=== PATIENT | male | born 1935 | race Hispanic/Latino ===

== ENCOUNTER 2019-07-05 16:09 | Emergency (ER) | payer OTHER ==
[~2019-07-05] VITALS: Ht 170.2 cm; Wt 83.9 kg
[~2019-07-05 16:09] MED LIST: ARICEPT5 MG PO; ASPIR 8181 MG PO; ATORVASTATIN CA40 MG PO; FLAXSEED PO; FLOMAX0.4 MG PO; NAMENDA PO; NAMENDA10 MG PO; Z.0.AMBIEN10 MG PO; Z.0.FLOMAX0.4 MG PO; Z.0.KEFLEX500 MG PO; Z.0.LOVENOX30 MG/0.3 SQ; Z.0.NORCO 7.5-3251 E PO; Z.0.PRAVASTATIN SOD4 PO; Z.0.SIMVASTATIN40 MG PO; Z.0.VALIUM5 MG PO
[2019-07-05] MEDS ORDERED: SODIUM CHLORIDE 0.9% 500ML 500 ML IV STA (16:17)
[2019-07-05 16:45] LABS: BASOPHILS # (AUTO) 0.1 (0.0-0.1); BASOPHILS % 1.3 % (0.0-1.0); EOSINOPHILS % 0.5 % (0.0-6.0); HEMATOCRIT 47.9 % (38.2-49.6); HEMOGLOBIN 16.1 g/dL (14.0-18.0); LYMPHOCYTES # (AUTO) 1.7 (1.0-3.2); LYMPHOCYTES % 26.5 % (18.0-39.1); MEAN CORPUSCULAR HEMOGLOBIN 29.6 pg (28-32); MEAN CORPUSCULAR HGB CONC 33.6 g/dL (31-35); MEAN CORPUSCULAR VOLUME 88.1 fL (81-99); MONOCYTES # (AUTO) 0.5 (0.2-0.8); MONOCYTES % 7.4 % (4.4-11.3); PLATELET COUNT 222 x10e3/uL (140-360); RED BLOOD COUNT 5.44 x10e6/uL (4.3-5.7); RED CELL DISTRIBUTION WIDTH 13.8 % (11.7-14.4)
[2019-07-05 16:54] LABS: INR 1.09; PARTIAL THROMBOPLASTIN TIME 36.4 seconds (23.8-35.5); PROTHROMBIN TIME 14.8 seconds (11.9-14.5)
[2019-07-05 16:59] LABS: ALANINE AMINOTRANSFERASE 13 IU/L (0-55); ALBUMIN 3.8 g/dL (3.5-5.0); ALBUMIN/GLOBULIN RATIO 1.3 (0.8-2.0); ALKALINE PHOSPHATASE 77 IU/L (40-150); ANION GAP 13.3 mmol/L (8-16); BLOOD UREA NITROGEN 12 mg/dL (7-26); BUN/CREATININE RATIO 14 (6-25); CALCIUM 10.6 mg/dL (8.4-10.2); CARBON DIOXIDE 24 mmol/L (22-29); CHLORIDE 105 mmol/L (98-107); CREATINE KINASE 31 IU/L (30-200); CREATININE, SERUM 0.84 mg/dL (0.72-1.25); EST GLOMERULAR FILTRATION RATE > 60 ML/MIN (60-); GLUCOSE 124 mg/dL (74-118); POTASSIUM 4.3 mmol/L (3.5-5.1); SODIUM 138 mmol/L (136-145)
--- NOTE | 2019-07-05 16:59 | Diagnostic Imaging Report ---
EXAM: ABDOMEN-1VIEW (KUB), CHEST SINGLE (PORTABLE) DATE: 07/05/2019 4:35 PM INDICATION: Weakness, constipation COMPARISON: None FINDINGS: There is significant opacification of the left hemithorax likely reflecting large volume pleural effusion. There is mild associated rightward mediastinal shift. The aerated portion of the left upper lobe appears unremarkable. The right lung is grossly clear. There is no evidence for pneumothorax. The cardiomediastinal silhouette is partially obscured but appears prominent. Bowel gas pattern is appears nonobstructive. No pathologically dilated loops of bowel are identified. No abnormal intra-abdominal calcification is appreciated. The osseous structures demonstrate degenerative changes without evidence for acute abnormality. IMPRESSION: Significant opacification of the left hemithorax likely reflecting large volume pleural effusion. No acute radiographic abnormality identified within the abdomen. Signed by: Dr. Hipolito Wright MD on 07/05/2019 4:55 PM
--- OUTSIDE RECORDS SUMMARY | 2019-07-05 17:47 | XMS REPORT ---
Author Author [facility] Organization [facility] Address Unknown Phone Unavailable Care Team Providers Care Fifth Hand Name Role Phone JOSE D CUELLO Unavailable Unavailable Problems This patient has no known problems. Allergies, Adverse Reactions, Alerts This patient has no known allergies or adverse reactions. Medications This patient has no known medications. Results Test Description Test Time Test Comments Text Results Atomic Results Result Comments CHEST SINGLE (PORTABLE) 2019-07-05 16:51:00 [place] [address] Patient Name: KATHY HERNÁNDEZ MR #: [id number] : 1935 Age/Sex: 84/M Req #: [id number] Adm Physician: Ordered by: HECTOR LOCKE [employer]ICE RECORDS CLERK Report #: [id number] Location: ER Room/Bed: Procedure: [id number] DX/CHEST SINGLE (PORTABLE) Exam Date: 07/05/19 Exam Time: 1635 REPORT STATUS: Signed EXAM: ABDOMEN-1VIEW (KUB), CHEST SINGLE (PORTABLE) DATE: 07/05/2019 4:35 PM INDICATION: Weakness, constipation COMPARISON: None FINDINGS: There is significant opacification of the left hemithorax likely reflecting large volume pleural e ffusion. There is mild associated rightward mediastinal shift. The aerated portion of the left upper lobe appears unremarkable. The right lung is grossly clear. There is no evidence for pneumothorax. The cardiomediastinal silhouette is partially obscured but appears prominent. Bowel gas pattern is appears nonobstructive. No pathologically dilated loops of bowel are identified. No abnormal intra-abdominal calcification is appreciated. The osseous structures demonstrate degenerative changes without evidence for acute abnormality. IMPRESSION: Significant opacification of the left hemithorax likely reflecting large volume pleural effusion. No acute radiographic abnormality identified within the abdomen. Signed by: Dr. Hipolito Wright MD on 07/05/2019 4:55 PM Dictated By: HIPOLITO WRIGHT MD 54 Transcribed By: CARMEL on 07/05/191654 COPY TO: HECTOR LOCKE NP ABDOMEN-1VIEW (KUB) 2019-07-05 16:51:00 [place] [address] Patient Name: KATHY HERNÁNDEZ MR #: [id number] : 1935 Age/Sex: 84/M Req #: [id number] Adm Physician: Ordered by: HECTOR LOCKE NP Report #: [id number] Location: ER Room/Bed: Procedure: [id number] DX/ABDOMEN-1VIEW (KUB) Exam Date: 07/05/19 Exam Time: 1635 REPORT STATUS: Signed EXAM: ABDOMEN-1VIEW (KUB), CHEST SINGLE (PORTABLE) DATE: 07/05/2019 4:35 PM INDICATION: Weakness, constipation COMPARISON: None FINDINGS: There is significant opacification of the left hemithorax likely reflecting large volume pleural effusion. There is mild associated rightward mediastinal shift. The aerated portion of the left upper lobe appears unremarkable. The right lung is grossly clear. There is no evidence for pneumothorax. The cardiomediastinal silhouette is partially obscured but appears prominent. Bowel gas pattern is appears nonobstructive. No pathologically dilated loops of bowel are identified. No abnormal intra-abdominal calcification is appreciated. The osseous structures demonstrate degenerative changes without evidence for acute abnormality.
[2019-07-05] MEDS ORDERED: PIPER-TAZ 3.375 GM 50 ML IV SCH (18:00)
[2019-07-05] MEDS ORDERED: LEVOFLOXACIN 500 MG TAB PO ONE (18:15)
== END 2019-07-05 18:26 | disposition home or self-care (01) ==
LOC: ER 16:09
DX: R53.1 Weakness (principal); J18.9 Pneumonia, unspecified organism; J90 Pleural effusion, not elsewhere classified
CPT/HCPCS: 36415; 71045; 74018; 80053; 82550; 82553; 84484; 85025; 85610; 85730; 93005; 99284; J7040

== ENCOUNTER 2019-07-12 12:33 | Emergency (ER) | payer OTHER ==
[~2019-07-12] VITALS: Ht 170.2 cm; Wt 83.9 kg
[2019-07-12 13:54] LABS: BASOPHILS # (AUTO) 0.1 (0.0-0.1); BASOPHILS % 0.7 % (0.0-1.0); EOSINOPHILS % 0.5 % (0.0-6.0); HEMATOCRIT 47.1 % (38.2-49.6); HEMOGLOBIN 15.4 g/dL (14.0-18.0); LYMPHOCYTES # (AUTO) 1.4 (1.0-3.2); LYMPHOCYTES % 16.9 % (18.0-39.1); MEAN CORPUSCULAR HEMOGLOBIN 28.8 pg (28-32); MEAN CORPUSCULAR HGB CONC 32.7 g/dL (31-35); MONOCYTES # (AUTO) 0.8 (0.2-0.8); MONOCYTES % 9.7 % (4.4-11.3); NEUTROPHILS # (AUTO) 5.8 (2.1-6.9); PLATELET COUNT 213 x10e3/uL (140-360); RED BLOOD COUNT 5.35 x10e6/uL (4.3-5.7); RED CELL DISTRIBUTION WIDTH 13.9 % (11.7-14.4)
--- NOTE | 2019-07-12 13:55 | Emergency Department Note ---
History of Present Illnes History of Present Illness Chief Complaint: General Medicine Complaints Stated Complaint: HIGH BP- Chief Complaint Comment per daughter pt dx with pleural effusion this past mon hx of alzheimers per family dr weldon wanted to keep pt but because of alz. and pt hx of becoming combative in unfamiliar surroundings daughter who is nurse said she would monitor pt at home per family pt has anxiety and at home would get anxious and o2 sat would drop between 92- 94% pt also took 's home meds by mistake thinking it was his pt took atorvastatin 40 mg, clopiddogrel 75 mg, lisinopril 20 mg, and amlodipine 10 mg and trajenta 5 mg, family states pt bp has dropped as low 79 systolic; dr kaplan in room during triage History of Present Illness This is a 84 year old male arrived to the ED after accidentally taking his 's blood pressure medications- pt hypotensive at home, daughter is a RN and was concerned about persistent hypotension. Historian: Patient, Family Member Ultrasound Tester Required: No Severity: mild Onset quality: sudden Past Medical/Family History Physician Review I have reviewed the patient's past medical and family history. Any updates have been documented here. Past Medical History Recent Fever: No Clinical Suspicion of Infectio: No New/Unexplained Change in Ment: No Past Medical History: Hypertension, Hyperlipedemia Other Medical History: ALZHEIMERS Past Surgical History: Knee Replacement Other Surgery: RIGHT TOTAL KNEE Social History Smoking Cessation: Current every day smoker Counseling Performed: No Alcohol Use: Occasional Any Illegal Drug Use: No TB Exposure/Symptoms: No Physically hurt or threatened: No Other Last Tetanus: UNKNOWN Any Pre-Existing Lines (PICC,: No Is patient up to date on immun: Yes Last Flu: utd Last Pneumovax: utd Review of Systems Review of Systems Constitutional: no symptoms EENTM: no symptoms Cardiovascular: no symptoms Respiratory: no symptoms Gastrointestinal: no symptoms Genitourinary: no symptoms Musculoskeletal: no symptoms Integumentary: no symptoms Neurological: no symptoms Psychological: no symptoms Endocrine: no symptoms Hematological/Lymphatic: no symptoms Review of other systems All other systems reviewed and negative. Physical Exam Related Data Allergies: Coded Allergies: hydromorphone (Verified Allergy, Intermediate, Combative, Disoriented, 10/25/13) Triage Vital Signs Vital Signs Date Time Temp Pulse Resp B/P (MAP) Pulse Ox O2 Delivery O2 Flow Rate FiO2 5/12/20 12:50 97.6 84 18 103/80 96 Physical Exam CONSTITUTIONAL Constitutional: well-developed, well-nourished HENT HENT: normocephalic, atraumatic, oropharynx clear/moist, nose normal HENT - Ear: left ext ear normal, right ext ear normal EYES Eyes: PERRL, conjunctivae normal NECK Neck: ROM normal PULMONARY Pulmonary: effort normal, other (decreased breath sounds over left lung carney ) CARDIOVASCULAR Cardiovascular: regular rhythm, heart sounds normal, capillary refill normal, normal rate GASTROINTESTINAL Abdominal: soft, nontender, bowel sounds normal GENITOURINARY Genitourinary: exam deferred SKIN Skin: warm, dry MUSCULOSKELETAL Musculoskeletal: ROM normal NEUROLOGICAL Neurological: alert, no gross motor or sensory deficits PSYCHOLOGICAL Psychiatric/behavioral: mood/affect normal, judgement normal Results Laboratory Laboratory Laboratory Tests Test 07/12/19 13:01 07/12/19 12:57 White Blood Count 8.04 x10e3/uL (4.8-10.8) Red Blood Count 5.35 x10e6/uL (4.3-5.7) Hemoglobin 15.4 g/dL (14.0-18.0) Hematocrit 47.1 % (38.2-49.6) Mean Corpuscular Volume 88.0 fL (81-99) Mean Corpuscular Hemoglobin 28.8 pg (28-32) Mean Corpuscular Hemoglobin Concent 32.7 g/dL (31-35) Red Cell Distribution Width 13.9 % (11.7-14.4) Platelet Count 213 x10e3/uL (140-360) Neutrophils (%) (Auto) 72.0 % (38.7-80.0) Lymphocytes (%) (Auto) 16.9 % (18.0-39.1) Monocytes (%) (Auto) 9.7 % (4.4-11.3) Eosinophils (%) (Auto) 0.5 % (0.0-6.0) Basophils (%) (Auto) 0.7 % (0.0-1.0) Neutrophils # (Auto) 5.8 (2.1-6.9) Lymphocytes # (Auto) 1.4 (1.0-3.2) Monocytes # (Auto) 0.8 (0.2-0.8) Eosinophils # (Auto) 0.0 (0.0-0.4) Basophils # (Auto) 0.1 (0.0-0.1) Absolute Immature Granulocyte (auto 0.02 x10e3/uL (0-0.1) Sodium Level 136 mmol/L (136-145) Potassium Level 3.7 mmol/L (3.5-5.1) Chloride Level 102 mmol/L (98-107) Carbon Dioxide Level 25 mmol/L (22-29) Anion Gap 12.7 mmol/L (8-16) Blood Urea Nitrogen 11 mg/dL (7-26) Creatinine 1.10 mg/dL (0.72-1.25) Estimat Glomerular Filtration Rate > 60 ML/MIN (60-) BUN/Creatinine Ratio 10 (6-25) Glucose Level 108 mg/dL (74-118) Calcium Level 9.9 mg/dL (8.4-10.2) Total Bilirubin 1.0 mg/dL (0.2-1.2) Aspartate Amino Transf (AST/SGOT) 18 IU/L (5-34) Alanine Aminotransferase (ALT/SGPT) 22 IU/L (0-55) Alkaline Phosphatase 77 IU/L (40-150) Creatine Kinase 41 IU/L (30-200) Creatine Kinase MB 1.00 ng/mL (0-5.0) Troponin I 0.011 ng/mL (0-0.300) Total Protein 6.5 g/dL (6.5-8.1) Albumin 3.6 g/dL (3.5-5.0) Globulin 2.9 g/dL (2.3-3.5) Albumin/Globulin Ratio 1.2 (0.8-2.0) Bedside Glucose 126 mg/dL (70-120) Lab results reviewed: Yes Laboratory comments unremarkable Procedures 12 Lead ECG Interpretation Ultrasound Tester: Interpreted by ED physician Date: July 12, 2019 Time: 13:04 Prior BALANCE BRIDGE INSPECTOR tracings: reviewed Rhythm: sinus rhythm QRS axis: normal ST Segments Normal: Yes Other findings: no other findings Clinical Impression: normal ECG Critical Care Time Subsequent provider I assumed direction of critical care for this patient from another provider of my specialty. Assessment & Plan Assessment & Plan Problems: (1) Pleural effusion (2) Hypotension Assessment & Plan 84 M arrived to the ED with hypotension after accidentally taking 's BP meds -pt monitored in the ED, normal vitals and labs -Thoracentesis done in the ED- tolerated well - family wished to take pt home because of fears of pt sundowning Pt has 5 daughter all in health care, spoke to 3 daughters individually and informed them of concerns of leaving before chest x-ray result- expressed understanding. Spoke to family about re-expansion edema and suggested hospital admission for monitoring. Daughters state they have pulse ox and BP machine at home and feel comfortable monitoring F/U with Dr. Weldon was arranged for this week. P's family given my direct number to reach out for any concerns or issues Last Vital Signs Date Time Temp Pulse Resp B/P (MAP) Pulse Ox O2 Delivery O2 Flow Rate FiO2 07/12/19 12:50 97.6 84 18 103/80 96 Home Meds Reported Medications Memantine Hcl (NAMENDA) 10 Mg Tablet, 10 MG PO HS, #30 TAB 03/22/15 Aspirin (ASPIR 81) 81 Mg Tablet.dr, 81 MG PO HS 12/25/14 Donepezil Hcl (ARICEPT) 5 Mg Tablet, 5 MG PO HS, TAB 12/25/14 Atorvastatin Calcium (ATORVASTATIN CALCIUM) 40 Mg Tablet, 40 MG PO HS 11/29/13 Tamsulosin Hcl* (FLOMAX*) 0.4 Mg Cap, 0.4 MG PO HS, CAP 10/25/13 TIM KAPLAN, July 12, 2019 13:55
[2019-07-12 14:11] LABS: ALANINE AMINOTRANSFERASE 22 IU/L (0-55); ALBUMIN 3.6 g/dL (3.5-5.0); ALBUMIN/GLOBULIN RATIO 1.2 (0.8-2.0); ALKALINE PHOSPHATASE 77 IU/L (40-150); ANION GAP 12.7 mmol/L (8-16); BLOOD UREA NITROGEN 11 mg/dL (7-26); BUN/CREATININE RATIO 10 (6-25); CALCIUM 9.9 mg/dL (8.4-10.2); CARBON DIOXIDE 25 mmol/L (22-29); CHLORIDE 102 mmol/L (98-107); CREATINE KINASE 41 IU/L (30-200); EST GLOMERULAR FILTRATION RATE > 60 ML/MIN (60-); GLUCOSE 108 mg/dL (74-118); POTASSIUM 3.7 mmol/L (3.5-5.1); SODIUM 136 mmol/L (136-145)
--- NOTE | 2019-07-12 15:47 | NUR ---
daughter Lashon called to check on her father and states that she will call back.
--- NOTE | 2019-07-12 16:48 | NUR ---
pt daughter who is a registerd nurse states that she wants to take client home. Dr. Vaz came to speak to the client daughter and advised her that there are risks associated with post procedure monitoring and not waiting for x-rays to be read. Dr. Vaz explained to the daughter that it is dangerous to leave without x-ray results due to a chance of alveolar edema. clients daughter reiterated that she was a nurse and that she accepts the risks and wished to take client home without waiting for results.
--- NOTE | 2019-07-12 17:10 | Operative Report ---
DATE OF PROCEDURE: SURGEON: Meir Weldon MD PROCEDURE: Ultrasound-guided thoracentesis. PREOPERATIVE DIAGNOSIS: Pleural effusion, possibly secondary to malignancy. POSTOPERATIVE DIAGNOSIS: Pleural effusion, possibly secondary to malignancy. CONSENT: Consent was obtained from the patient and the daughter. ANESTHESIA: 1% lidocaine for local anesthesia. DESCRIPTION OF PROCEDURE: The patient was placed in upright position. An ultrasound was used to locate the left pleural space. There was a large pleural effusion without loculations. The area between the 8th and 9th rib posterolaterally was anesthetized with lidocaine. A 16-gauge needle was used to enter the left pleural space. A catheter was placed over the needle. 2.4 L of dark serosanguineous pleural fluid was removed. COMPLICATIONS: None. ESTIMATED BLOOD LOSS: None. Meir Weldon MD LMH/MODL /[id number]
[2019-07-12 17:24] LABS: BODY FLUID TYPE PLEURAL
[2019-07-12 17:25] LABS: BODY FLUID COLOR RED
[2019-07-12 17:26] LABS: BODY FLUID APPEARANCE SL.CLOUDY
[2019-07-12 18:49] LABS: RBC,BODY FLUID 52470 cells/uL; WBC,BODY FLUID 594 cells/uL
[2019-07-12 21:46] LABS: LYMPHOCYTES,BODY FLUID 81 %; MONO/MACROPHG,BODY FLUID 5 %; NEUTROPHILS,BODY FLUID 1 %; OTHER CELLS,BODY FLUID 13 %
--- NOTE | 2019-07-13 09:37 | Diagnostic Imaging Report ---
Examination: Single AP view of the chest. COMPARISON: 07/12/2019 INDICATION: Pleural effusion DISCUSSION: Lines/tubes: None. Lungs: Decreased opacification of the left hemithorax secondary to large effusion and atelectasis. Additional pathology may be obscured. Heart and mediastinum: The right heart border appears enlarged. Mediastinal shift towards the right. Bones and soft tissues: No acute bony abnormalities. IMPRESSION: Decreased opacification of the left hemithorax secondary to large effusion and atelectasis with partial aeration of the left upper lung. Additional pathology may be obscured. No pneumothorax. Mildly decreased mediastinal shift towards the right. Signed by: Dr. Wyatt Quick M.D. on 07/13/2019 9:30 AM
--- NOTE | 2019-07-13 09:37 | Diagnostic Imaging Report ---
Examination: Single AP view of the chest. COMPARISON: July 05, 2019 INDICATION: Pleural effusion DISCUSSION: Lines/tubes: None. Lungs: Complete opacification of the left hemithorax secondary to large effusion atelectasis. Additional pathology may be obscured. Heart and mediastinum: The right heart border appears enlarged. Mediastinal shift towards the right. Bones and soft tissues: No acute bony abnormalities. IMPRESSION: Now complete opacification of the left hemithorax secondary to large effusion and atelectasis. Additional pathology may be obscured. Mediastinal shift towards the right. Signed by: Dr. Wyatt Quick M.D. on 07/13/2019 9:29 AM
== END 2019-07-12 17:10 | disposition home or self-care (01) ==
LOC: ER 12:33
DX: I95.2 Hypotension due to drugs (principal); J90 Pleural effusion, not elsewhere classified; G30.9 Alzheimer's disease, unspecified; F02.80 Dementia in other diseases classified elsewhere, unspecified severity, without behavioral disturbance, psychotic disturbance, mood disturbance, and anxiety; I10 Essential (primary) hypertension; E78.5 Hyperlipidemia, unspecified; Z96.651 Presence of right artificial knee joint
CPT/HCPCS: 36415; 71045; 80053; 82550; 82553; 82948; 83615; 84157; 84484; 85025; 88112; 88305; 89051; 93005; 99282

== ENCOUNTER 2019-08-01 05:46 | Inpatient (IN) | payer OTHER ==
[2019-07-28 13:15] LABS: BASOPHILS # (AUTO) 0.1 (0.0-0.1); BASOPHILS % 1.1 % (0.0-1.0); EOSINOPHILS # (AUTO) 0.1 (0.0-0.4); EOSINOPHILS % 0.8 % (0.0-6.0); HEMATOCRIT 47.9 % (38.2-49.6); HEMOGLOBIN 15.8 g/dL (14.0-18.0); LYMPHOCYTES # (AUTO) 1.4 (1.0-3.2); LYMPHOCYTES % 21.9 % (18.0-39.1); MEAN CORPUSCULAR HEMOGLOBIN 28.7 pg (28-32); MEAN CORPUSCULAR VOLUME 87.1 fL (81-99); MONOCYTES # (AUTO) 0.7 (0.2-0.8); MONOCYTES % 10.4 % (4.4-11.3); NEUTROPHILS # (AUTO) 4.2 (2.1-6.9); NEUTROPHILS % 65.5 % (38.7-80.0); PLATELET COUNT 257 x10e3/uL (140-360); RED CELL DISTRIBUTION WIDTH 13.6 % (11.7-14.4)
--- NOTE | 2019-07-28 13:27 | Diagnostic Imaging Report ---
EXAMINATION: CHEST 2 VIEWS INDICATION: Pre-operative COMPARISON: Chest radiograph 07/12/2019 FINDINGS: LINES/TUBES:None LUNGS:The right lung is well-inflated. Left lung volume is low. There is left basilar opacity silhouetting the left familia diaphragm. PLEURA:Large left pleural effusion. No pneumothorax. MEDIASTINUM:Cardiomediastinal silhouette is stably enlarged. BONES/SOFT TISSUES:No acute osseous injury. ABDOMEN:No free air under the diaphragm. IMPRESSION: Large left pleural effusion. Left basilar opacity, most likely atelectasis. Unchanged cardiomegaly. Signed by: Alxe Benitez MD on 07/28/2019 1:24 PM
[2019-07-28 13:34] LABS: PROTHROMBIN TIME 13.8 seconds (11.9-14.5)
[2019-07-28 13:35] LABS: PARTIAL THROMBOPLASTIN TIME 34.9 seconds (23.8-35.5)
[2019-07-28 13:39] LABS: ANION GAP 12.3 mmol/L (8-16); BLOOD UREA NITROGEN 11 mg/dL (7-26); BUN/CREATININE RATIO 13 (6-25); CALCIUM 10.1 mg/dL (8.4-10.2); CARBON DIOXIDE 23 mmol/L (22-29); CHLORIDE 105 mmol/L (98-107); CREATININE, SERUM 0.82 mg/dL (0.72-1.25); EST GLOMERULAR FILTRATION RATE > 60 ML/MIN (60-); GLUCOSE 105 mg/dL (74-118); POTASSIUM 4.3 mmol/L (3.5-5.1); SODIUM 136 mmol/L (136-145)
[~2019-08-01] VITALS: Ht 170.2 cm; Wt 83.9 kg
[~2019-08-01 05:46] MED LIST changes: +CLOPIDOGREL75 MG PO; +LISINOPRIL2.5 MG PO; +QUETIAPINE FUMA25 MG PO
[2019-08-01] MEDS ORDERED: HEPARIN SOD/SOD CHLORIDE 0 ML ONE (06:59)
[2019-08-01] MEDS ORDERED: SUGAMMADEX SODIUM 200 MG/2 ML VIAL IV ONE (07:16)
[2019-08-01] MEDS ORDERED: LIDOCAINE HCL (LTA) 4 ML SOLN ONE (07:22)
[2019-08-01] MEDS ORDERED: BUPIVACAINE HCL 0.5% INJ 30 ML VIAL INJ ONE (08:56)
[2019-08-01] MEDS ORDERED: FENTANYL CITRATE/PF 100MCG/2 ML INJ ONE ×2 (09:57→13:57)
--- NOTE | 2019-08-01 10:14 | Diagnostic Imaging Report ---
EXAM: CHEST SINGLE (PORTABLE) DATE: 08/01/2019 9:44 AM INDICATION: Status post chest tube placement COMPARISON: 07/28/2019 FINDINGS: There is been interval placement of a left basilar chest tube. There has been significant reduction in left-sided pleural effusion with trace residual or effusion remaining. There are increased left basilar opacities which may reflect atelectasis. An underlying airspace process cannot be entirely excluded. There is no evidence for large focal consolidation or pneumothorax. The cardiomediastinal silhouette is stable in appearance. Subcutaneous emphysema noted within the left chest wall, likely secondary to recent chest tube placement. No acute osseous abnormalities identified. IMPRESSION: Interval placement of a left-sided chest tube with significant reduction of left pleural effusion. Left lower lung zone opacities identified which may reflect atelectasis. Signed by: Dr. Hipolito Wright MD on 08/01/2019 10:11 AM
--- OUTSIDE RECORDS SUMMARY | 2019-08-01 11:15 | XMS REPORT ---
Author Author [facility] t Organization [facility] Address [address] [place] [address] Phone Unavailable Care Team Providers Care Personnel Recruiter Name Role Phone MD JOSE MANZO PCP KIERRA VILLASENOR Attphys Unavailable Juan WELDON Attphys Unavailable JOSE D CUELLO Attphypauline Unavailable Payers Payer Name Policy Type Policy Number Effective Date Expiration Date Pauline [employer] NA 2015 00:00:00 [facility] Problems Condition Name Condition Details Condition Category Status Onset Date Resolution Date Last Treatment Date Treating Clinician Comments Source Pleural effusion Problem Active [facility] Hypotension Problem Active [facility] Allergies, Adverse Reactions, Alerts Allergy Name Allergy Type Status Severity Reaction(s) Onset Date Inacti ve Date Treating Clinician Comments Source Hydromorphone Allergy to substance Active Moderate Combative, D isoriented 2013-10-25 00:00:00 [facility] Social History Social Habit Start Date Stop Date Quantity Comments Source Sex Assigned At 1935 00:00:00 1935 00:00:00 Male [facility] Medications Ordered Medication Name Filled Medication Name Start Date Stop Da te Current Medication? Ordering Clinician Indication Dosage Frequency Signature (SIG) Comments Components Source Aspirin (Aspir 81) 81 Mg TABLET. Aspirin (Aspir 81) 81 Mg TABLET. Yes 81 Bedtime [facility] Atorvastatin Calcium Atorvastatin Calcium Yes 40 Bedtime [facility] Donepezil Hcl (Aricept) 5 Mg TABLET Donepezil Hcl (Aricept) 5 Mg TABL ET Yes 5 Bedtime [facility] Memantine Hcl (Namenda) 10 Mg TABLET Memantine Hcl (Namenda) 10 Mg TABLET Yes 10 Bedtime [facility] Tamsulosin Hcl (Flomax*) 0.4 Mg CAP Tamsulosin Hcl (Flomax*) 0.4 Mg C AP Yes .4 Bedtime [facility] Flaxseed Flaxseed 2014-12-25 00:00:00 No Daily [facility] Memantine Hcl (Namenda) 10 Mg TABLET Memantine Hcl (Namenda) 10 Mg TABLET 2014-12-25 00:00:00 No 5 Use As Directed [facility] Pravastatin Sodium Pravastatin Sodium 2013-11-29 00:00:00 No 40 Daily [facility] Cephalexin Monohydrate (Keflex) 500 Mg CAPSULE Cephale kevin Monohydrate (Keflex) 500 Mg CAPSULE 2011-12-04 00:00:00 No 500 Twice A D ay [facility] Diazepam (Valium) 5 Mg TABLET Diazepam (Valium) 5 Mg TABLET 2011-12-04 00:00:00 No 5 Every 6 Hours C [facility] Enoxaparin Sodium (Lovenox) 30 Mg/0.3 Ml DISP.SYRIN En oxaparin Sodium (Lovenox) 30 Mg/0.3 Ml DISP.SYRIN 2011-12-04 00:00:00 No 30 Twice A Day [facility] Hydrocodone Bit/Acetaminophen ([place] 7.5-325 Tablet) 1 Each TABLET Hydrocodone Bit/Acetaminophen ([place] 7.5-325 Tablet) 1 Each TABLET 00:00:00 No 1 Every 4-6 Hours [facility] Simvastatin Simvastatin 2011-12-04 00:00:00 No 40 D aily [facility] Tamsulosin Hcl (Flomax) 0.4 Mg CAP.SR.24H Tamsulosin H cl (Flomax) 0.4 Mg CAP.SR.24H 2011-12-04 00:00:00 No .4 Bedtime [facility] Zolpidem Tartrate (Ambien) 10 Mg TABLET Zolpidem Tartrate (A mbien) 10 Mg TABLET 2011-12-04 00:00:00 No 10 Bedtime [facility] Vital Signs Vital Name Observation Time Observation Value Comments Source Weight 2019-07-12 12:50:00 185 [lb_av] [facility] BMI (Body Mass Index) 2019-07-12 12:50:00 29.0 kg/m2 [facility] Weight 2019-07-05 16:14:00 185 [lb_av] [facility] BMI (Body Mass Index) 2019-07-05 16:14:00 29.0 kg/m2 [facility] Procedures This patient has no known procedures. Plan of Care Planned Activity Planned Date Details Comments Source Instructions Pleural Effusion [facility] Encounters Start Date/Time End Date/Time Encounter Type Admission Type [facility] Care Department Encounter ID Source 2019-07-12 12:33:00 2019-07-12 17:10:00 Departed Emergency Room 1 MEIR WELDON [facility] [id number] [facility] 2019-07-05 17:43:00 2019-07-05 18:26:00 Departed Emergency Room 1 CUATE JOSE D [facility] [id number] [facility] Results Test Description Test Time Test Comments Results Result Comments Source CHEST SINGLE (PORTABLE) 2019-08-01 10:09:00 [facility] [address] [address] Patient Name: KATHY HERNÁNDEZ MR #: [id number] : 1935 Age/Sex: 84/M Req #: [id number] Adm Physician: Ordered by: KIERRA VILLASENOR MD Report #: [id number] Location: OR Room/Bed: Procedure: [id number] DX/CHEST SINGLE (PORTABLE) Exam Date: 08/01/19 Exam Time: 943 REPORT STATUS: Signed EXAM: CHEST SINGLE (PORTABLE) DATE: 08/01/2019 9:44 AM INDICATION: Status post chest tube placement COMPARISON: 07/28/2019 FINDINGS: There is been interval placement of a left basilar chest tube. There has been significant reduction in left-sided pleural effusion with trace residual or effusion remaining. There are increased left basilar opacities which may reflect atelectasis. An underlying airspace process cannot be entirely excluded. There is no evidence for large focal consolidation or pneumothorax. The cardiomediastinal silhouette is stable in appearance. Subcutaneous emphysema noted within the left chest wall, likely secondary to recent chest tube placement. No acute osseous abnormalities identified. IMPRESSION: Interval placement of a left- sided chest tube with significant reduction of left pleural effusion. Left lower lung zone opacities identified which may reflect atelectasis. Signed by: Dr. Hipolito Wright MD on 08/01/2019 10:11 AM Dictated By: HIPOLITO WRIGHT MD 1011 Transcribed By: CARMEL on 08/01/19 1011 COPY TO: KIERRA VILLASENOR MD CHEST 2 VIEWS 2019-07-28 13:23:[address] [address] Patient Name: KATHY HERNÁNDEZ MR #: [id number] : 1935 Age/Sex: 84/M Req #: [id number] Adm Physician: Ordered by: KIERRA VILLASENOR MD Report #: [id number] Location: OR Room/Bed: Procedure: [id number] DX/CHEST 2 VIEWS Exam Date: 07/28/19 Exam Time: 1219 REPORT STATUS: Signed EXAMINATION: CHEST 2 VIEWS INDICATION: Pre-operative COMPARISON: Chest radiograph 07/12/2019 FINDINGS: LINES/TUBES:None LUNGS:The right lung is well-inflated. Left lung volume is low. There is left basilar opacity silhouetting the left familia diaphragm. PLEURA:Large left pleural effusion. No pneumothorax. MEDIASTINUM:Cardiomediastinal silhouette is stably enlarged. BONES/SOFT TISSUES:No acute osseous injury. ABDOMEN:No free air under the diaphragm. IMPRESSION: Large left pleural effusion. Left basilar opacity, most likely atelectasis. Unchanged cardiomegaly. Signed by: Wilmer Garcia MD on 07/28/2019 1:24 PM Dictated By: WILMER GARCIA MD 1324 Transcribed By: CARMEL on 07/28/19 1324 COPY TO: KIERRA VILLASENOR MD - CT CHEST W/CONTRAST 2019-07-20 10:43:00 Name : KATHY HERNÁNDEZ [facility] : 1935 Age/S: 84 / M [address] [facility] Unit #: [id number] Loc: [place] [address] Phys: Meir Weldon MD Acct: [id number] Dis Date: Status: REG CLI PHONE #: [phone] Exam Date: 07/20/2019 0942 FAX #: [phone] Reason: LARGE LEFT PLEURAL EFFUSION EXAMS: CPT CODE: [id number] CT CHEST W/CONTRAST 94710 HISTORY: Large left pleural effusion. COMPARISON: None available. Location: [facility]. CT chest with contrast: 100 mL of Isovue 370. Automated exposure control. Unremarkable aorta with atherosclerotic change. No pulmonary embolism either. Well-opacified SVC and the neck vasculature. Unremarkable thyroid glands. Esophageal wall is moderately thickened. Correlate for esophagitis. No pathologic adenopathy. Cardiomegaly with trace pericardial effusion. Heavy atherosclerotic calcification of the LAD. Visualized upper abdomen is unremarkable. Subcutaneous tissues and the musculature are normal in appearance. No lytic or blastic lesions are noted within the bony skeleton. Massive left effusion with shift the mediastinum towards the right. Compressive complete left lower lobe atelectasis. Platelike atelectasis in the left upper lobe as well with fluid within the superior portion of the major fissure. No infiltrates or congestion. Right lung is clear. No bronchiectasis, honeycombing or fibrosis. No endobronchial lesions are visible. IMPRESSION: Massive left effusion with complete compressive atelectasis of the left lower lobe. Subsegmental atelectasis of the left upper lobe with fluid and the superior margin of the major fissure. No infiltrates or congestion. Severe circumferential wall thickening of the esophagus. Correlate for esophagitis. No pathologic adenopathy. at 1043 Reported and signed by: Zaheer Navarrete M.D. CC: Jose Manzo; Meir Weldon MD Technologist:Debbi Goodwin,RT(R),CT CTDI: DLP: Trnscb Date/Time: 07/20/2019 (1043) t.SDR.TH4 PAGE 1 Signed Report CHEST SINGLE (PORTABLE) 2019-07-13 09:29:00 [address] [place] [address] Patient Name: KATHY HERNÁNDEZ MR #: [id number] : 1935 Age/Sex: 84/M Req #: [id number] Adm Physician: Ordered by: MEIR WELDON MD Report #: [id number] Location: ER Room/Bed: Procedure: DX/CHEST SINGLE (PORTABLE) Exam Date: 07/12/19 Exam Time: 1635 REPORT STATUS: Signed Examination: Single AP view of the chest. COMPARISON: 07/12/2019 INDICATION: Pleural effusion DISCUSSION: Lines/tubes: None. Lungs: Decreased opacification of the left hemithorax secondary to large effusion and atelectasis. Additional pathology may be obscured. Heart and mediastinum: The right heart border appears enlarged. Mediastinal shift towards the right. Bones and soft tissues: No acute bony abnormalities. IMPRESSION: Decreased opacification of the left hemithorax secondary to large effusion and atelectasis with partial aeration of the left upper lung. Additional pathology may be obscured. No pneumothorax. Mildly decreased mediastinal shift towards the right. Signed by: Dr. Amita Aquino M.D. on 07/13/2019 9:30 AM Dictated By: AMITA AQUINO MD 9 Transcribed By: CARMEL on 07/13/19929 COPY TO: MEIR WELDON MD CHEST SINGLE (PORTABLE) 2019-07-13 09:26:00 [address] [place] [address] Patient Name: KATHY HERNÁNDEZ MR #: [id number] : 1935 Age/Sex: 84/M Req #: [id number] Adm Physician: Ordered by: TIM DE LA CRUZ DO Report #: [id number] Location: ER Room/Bed: Procedure: [id number] DX/CHEST SINGLE (PORTABLE) Exam Date: 07/12/19 Exam Time: 1405 REPORT STATUS: Signed Examination: Single AP view of the chest. COMPARISON: July 05, 2019 INDICATION: Pleural effusion DISCUSSION: Lines/tubes: None. Lungs: Complete opacification of the left hemithorax secondary to large effusion atelectasis. Additional pathology may be obscured. Heart and mediastinum: The right heart border appears enlarged. Mediastinal shift towards the right. Bones and soft tissues: No acute bony abnormalities. IMPRESSION: Now complete opacification of the left hemithorax secondary to large effusion and atelectasis. Additional pathology may be obscured. Mediastinal shift towards the right. Signed by: Dr. Amita Aquino M.D. on 07/13/2019 9:29 AM Dictated By: AMITA AQUINO MD 8 Transcribed By: CARMEL on 07/13/19928 COPY TO: TIM DE LA CRUZ DO Specimen source identification of body fluid 2019-07-12 16:4 0:00 Test Item Body Fluid Type (test code = 56318-1) PLEURAL [facility] color [facility] body fluid 2019-07-12 16:40:00* Test Item Value Reference Range Interpretation Comments Body Fluid Color (test code = 6824-7) RED [facility]landsDetermination of appearance of body fluid 2019-07-12 16:40:00* Test Item Value Reference Range Interpretation Comments Body Fluid Appearance (test code = 9335-1) SL.CLOUDY [facility]landsBody fluid protein measurement (mass/volume)2019-07-12 15:40:00* Test Item Value Reference Range Interpretation Comments Body Fluid Total Protein (test code = 2881-1) 4.4 [facility]landsBody fluid lactate dehydrogenase measurement (enzymatic activity/volume)2019-07-12 15:40:00* Test Item Value Reference Range Interpretation Comments Body Fluid Lactate Dehydrogenase (test code = 402683054) 385 No reference range has been established for this specimen type.[facility]lands[facility] leukocytes automated count (number/volume) 2019-07-12 13:01:00* Test Item Value Reference Range Interpretation Comments White Blood Count (test code = 6690-2) 8.04 4.8-10.8 [facility]landsBlood erythrocytes automated count (number/volume)2019-07-12 13:01:00* Test Item Value Reference Range Interpretation Comments Red Blood Count (test code = 789-8) 5.35 4.3-5.7 [facility] hemoglobin measurement (moles/volume)2019-07-12 13:01:00* Test Item Value Reference Range Interpretation Comments Hemoglobin (test code = 21841-3) 15.4 14.0-18.0 [facility]landsAutomated blood hematocrit (volume fraction)2019-07-12 13:01:00* Test Item Value Reference Range Interpretation Comments Hematocrit (test code = 4544-3) 47.1 38.2-49.6 [facility]landsAutomated erythrocyte mean corpuscular yhcscz1449-24-98 13:01:00* Test Item Value Reference Range Interpretation Comments Mean Corpuscular Volume (test code = 787-2) 88.0 81-99 [facility]landsAutomated erythrocyte mean corpuscular hemoglobin (mass per erythrocyte)2019-07-12 13:01:00* Test Item Value Reference Range Interpretation Comments Mean Corpuscular Hemoglobin (test code = 785-6) 28.8 28-32 [facility]landsAutomated erythrocyte mean corpuscular hemoglobin concentration measurement (mass/volume)2019-07-12 13:01:00* Test Item Value Reference Range Interpretation Comments Mean Corpuscular Hemoglobin Concent (test code = 786-4) 32.7 31-35 [facility]landsRDW DwpKv-Xal3321-53-12 13:01:00* Test Item Value Reference Range Interpretation Comments Red Cell Distribution Width (test code = 21852-0) 13.9 11.7 -14.4 [facility]landsAutdosher memorial hospitaled blood platelet count (count/volume)2019-07-12 13:01:00* Test Item Value Reference Range Interpretation Comments Platelet Count (test code = 777-3) 213 140-360 [facility]landsAutdosher memorial hospitaled blood segmented neutrophil count as percentage of total idxfmwuzfw4637-25-56 13:01:00* Test Item Value Reference Range Interpretation Comments Neutrophils (%) (Auto) (test code = 55060-7) 72.0 38.7-80.0 [facility]landsAutomated blood lymphocyte count as percentage ot total xxhqfxosik8151-95-97 13:01:00* Test Item Value Reference Range Interpretation Comments Lymphocytes (%) (Auto) (test code = 736-9) 16.9 18.0-39.1 [facility]landsAutomated blood monocyte count as percentage of total ukrkbjhdtb8944-07-01 13:01:00* Test Item Value Reference Range Interpretation Comments Monocytes (%) (Auto) (test code = 5905-5) 9.7 4.4-11.3 [facility]landsAutomated blood eosinophil count as percentage of total rfuqfbtyxb2712-07-01 13:01:00* Test Item Value Reference Range Interpretation Comments Eosinophils (%) (Auto) (test code = 713-8) 0.5 0.0-6.0 [facility]landsAutomated blood basophil count as percentage of total sfdqawtfap4955-98-07 13:01:00* Test Item Value Reference Range Interpretation Comments Basophils (%) (Auto) (test code = 706-2) 0.7 0.0-1.0 [facility]landsFluoroscopic procedure less than one hour ojjjbxzf8424-40-89 13:01:00* Test Item Value Reference Range Interpretation Comments IM GRANULOCYTES % (test code = IM GRANULOCYTES %) 0.2 0.0- 1.0 [facility]landsAutomated blood neutrophil count 2019-07-12 13:01:00* Test Item Value Reference Range Interpretation Comments Neutrophils # (Auto) (test code = 751-8) 5.8 2.1-6.9 [facility]landsBlood lymphocytes count (number/volume) 2019-07-12 13:01:00* Test Item Value Reference Range Interpretation Comments Lymphocytes # (Auto) (test code = 37086-7) 1.4 1.0-3.2 [facility]landsBlood monocytes automated count (number/volume)2019-07-12 13:01:00* Test Item Value Reference Range Interpretation Comments Monocytes # (Auto) (test code = 742-7) 0.8 0.2-0.8 [facility]landsAutomated blood eosinophil count 2019-07-12 13:01:00* Test Item Value Reference Range Interpretation Comments Eosinophils # (Auto) (test code = 711-2) 0.0 0.0-0.4 [facility]landsAutomated blood basophil count (count/volume)2019-07-12 13:01:00* Test Item Value Reference Range Interpretation Comments Basophils # (Auto) (test code = 704-7) 0.1 0.0-0.1 [facility]landsFluoroscopic procedure less than one hour senmyqki8380-31-65 13:01:00* Test Item Value Reference Range Interpretation Comments Absolute Immature Granulocyte (auto (bette t code = Absolute Immature Granulocyte (auto) 0.02 0-0.1 [facility] Hospitaler[facility] or plasma sodium measurement (moles/volume)2019-07-12 13:01:00* Test Item Value Reference Range Interpretation Comments Sodium Level (test code = 2951-2) 136 136-145 [facility] Hospitalerum or plasma potassium measurement (moles/volume)2019-07-12 13:01:00* Test Item Value Reference Range Interpretation Comments Potassium Level (test code = 2823-3) 3.7 3.5-5.1 [facility] Hospitalerum or plasma chloride measurement (moles/volume)2019-07-12 13:01:00* Test Item Value Reference Range Interpretation Comments Chloride Level (test code = 2075-0) 102 98-107 [facility] Hospitalerum or plasma carbon dioxide, total measurement (moles/volume)2019-07-12 13:01:00* Test Item Value Reference Range Interpretation Comments Carbon Dioxide Level (test code = 2028-9) 25 22-29 [facility] Hospitalerum or plasma anion dlb6325-10-10 13:01:00* Test Item Value Reference Range Interpretation Comments Anion Gap (test code = 67958-6) 12.7 8-16 [facility] Hospitalerum or plasma urea nitrogen measurement (mass/volume)2019-07-12 13:01:00* Test Item Value Reference Range Interpretation Comments Blood Urea Nitrogen (test code = 3094-0) 11 - [facility] Hospitalerum or plasma creatinine measurement (mass/volume)2019-07-12 13:01:00* Test Item Value Reference Range Interpretation Comments Creatinine (test code = 2160-0) 1.10 0.72-1.25 [facility] Hospitalerum or plasma urea nitrogen/creatinine mass roxkf7323-00-82 13:01:00* Test Item Value Reference Range Interpretation Comments BUN/Creatinine Ratio (test code = 3097-3) 10 - [facility]landsEstimated glomerular filtration rate (GFR) ddprnfuimunod8547-27-20 13:01:00* Test Item Value Reference Range Interpretation Comments Estimat Glomerular Filtration Rate (test code = 251322735) > 60 >60 Ranges were taken from the National Kidney Disease Education Program and the [facility] literature.Reference ranges:60 or greater: Gzfxsy55-20 ( for 3 consecutive months): Chronic kidney disease 15 or less: Kidney failureTexas Children's Hospital The WoodlandsGlucose iomkzhjajco4789-79-53 13:01:00* Test Item Value Reference Range Interpretation Comments Glucose Level (test code = EEY4650) 108 74-118 [facility] Hospitalerum or plasma calcium measurement (mass/volume)2019-07-12 13:01:00* Test Item Value Reference Range Interpretation Comments Calcium Level (test code = 97804-5) 9.9 8.4-10.2 [facility] Hospitalerum or plasma total bilirubin measurement (mass/volume)2019-07-12 13:01:00* Test Item Value Reference Range Interpretation Comments Total Bilirubin (test code = 1975-2) 1.0 0.2-1.2 [facility]landsFluoroscopic procedure less than one hour fazrlzfu1319-27-89 13:01:00* Test Item Value Reference Range Interpretation Comments Aspartate Amino Transf (AST/SGOT) (test code = Aspartate Amino Transf (AST/SGOT)) 18 5-34 [facility] Hospitalerum or plasma alanine aminotransferase measurement (enzymatic activity/volume)2019-07-12 13:01:00* Test Item Value Reference Range Interpretation Comments Alanine Aminotransferase (ALT/SGPT) (test code = 1742-6) 22 0-55 [facility] Hospitalerum or plasma protein measurement (mass/volume)2019-07-12 13:01:00* Test Item Value Reference Range Interpretation Comments Total Protein (test code = 2885-2) 6.5 6.5-8.1 [facility] Hospitalerum or plasma albumin measurement (mass/volume)2019-07-12 13:01:00* Test Item Value Reference Range Interpretation Comments Albumin (test code = 1751-7) 3.6 3.5-5.0 [facility]landsPlasma globulin measurement (mass/volume) 2019-07-12 13:01:00* Test Item Value Reference Range Interpretation Comments Globulin (test code = 21618-1) 2.9 2.3-3.5 [facility] Hospitalerum or plasma albumin/globulin mass gduou1669-79-67 13:01:00* Test Item Value Reference Range Interpretation Comments Albumin/Globulin Ratio (test code = 1759-0) 1.2 0.8-2.0 [facility] Hospitalerum or plasma alkaline phosphatase measurement (enzymatic activity/volume)2019-07-12 13:01:00* Test Item Value Reference Range Interpretation Comments Alkaline Phosphatase (test code = 6768-6) 77 40-150 [facility] Hospitalerum or plasma creatine kinase measurement (enzymatic activity/volume)2019-07-12 13:01:00* Test Item Value Reference Range Interpretation Comments Creatine Kinase (test code = 2157-6) 41 30-200 [facility] Hospitalerum or plasma creatine kinase MB measurement (mass/volume)2019-07-12 13:01:00* Test Item Value Reference Range Interpretation Comments Creatine Kinase MB (test code = 22504-6) 1.00 0-5.0 [facility]landsTroponin I measurement by highly sensitive enzyme hsjvzuidioa2141-47-80 13:01:00* Test Item Value Reference Range Interpretation Comments Troponin I (test code = 23027-9) 0.011 0-0.300 [facility] glucose measurement by glucometer (mass/volume)2019-07-12 12:57:00* Test Item Value Reference Range Interpretation Comments Bedside Glucose (test code = 43896-4) 126 70-120 Meter ID: [id number] [facility]2019-07-05 16:51:00 [facility] [address] [place] [address] Patient Name: KATHY HERNÁNDEZ MR #: [id number] : 1935 Age/Sex: 84/M Req #: [id number] Adm Physician: Ordered by: HECTOR LOCKE NP Report #: [id number] Location: ER Room/Bed: Procedure: [id number] DX/CHEST SIN GLE (PORTABLE) Exam Date: 07/05/19 Exam Time: 1635 REPORT STATUS: Signed EXAM: ABDO MEN-1VIEW (KUB), CHEST SINGLE (PORTABLE) DATE: 07/05/2019 4:35 PM ANUPAM CATION: Weakness, constipation COMPARISON: None FINDINGS: There is significant opacification of the left hemithorax likely reflecting large volu me pleural effusion. There is mild associated rightward mediastinal shift. The aerated portion of the left upper lobe appears unremarkable. The right lung i s grossly clear. There is no evidence for pneumothorax. The cardiomediastinal silhouette is partially obscured but appears prominent. Bowel gas pattern is appears nonobstructive. No pathologically dilated loops of bowel are identi fied. No abnormal intra-abdominal calcification is appreciated. The osseous structures demonstrate degenerative changes without evidence for acute abnorm ality. IMPRESSION: Significant opacification of the left hemithorax likely reflecting large volume pleural effusion. No acute radiographic a bnormality identified within the abdomen. Signed by: Dr. Hipolito Wright MD o fortunato 07/05/2019 4:55 PM Dictated By: HIPOLITO WRIGHT MD 54 Transcribed By: CARMEL on 07/05/191654 COPY TO: HECTOR LOCKE NP ABDOMEN-1VIEW (KUB)2019-07-05 16:51:00 [place] [address] Patient Name: KATHY HERNÁNDEZ MR #: [id number] : 1935 Age/Sex: 84/M Req #: [id number] Adm Physician: Ordered by: HECTOR LOCKE NP R eport #: [id number] Location: ER Room /Bed: Procedure: [id number] DX/ABDOMEN-1 VIEW (KUB) Exam Date: 07/05/19 Exam Time: 1635 REPORT STATUS: Signed EXAM: ABDOMEN- 1VIEW (KUB), CHEST SINGLE (PORTABLE) DATE: 07/05/2019 4:35 PM INDICATI ON: Weakness, constipation COMPARISON: None FINDINGS: There is sig nificant opacification of the left hemithorax likely reflecting large volume p leural effusion. There is mild associated rightward mediastinal shift. The aer ated portion of the left upper lobe appears unremarkable. The right lung is gr ossly clear. There is no evidence for pneumothorax. The cardiomediastinal silh ouette is partially obscured but appears prominent. Bowel gas pattern is a ppears nonobstructive. No pathologically dilated loops of bowel are identified . No abnormal intra-abdominal calcification is appreciated. The osseous str uctures demonstrate degenerative changes without evidence for acute abnormalit y. IMPRESSION: Significant opacification of the left hemithorax lik maida reflecting large volume pleural effusion. No acute radiographic abnor mality identified within the abdomen. Signed by: Dr. Hipolito Wright MD on 07/05/2019 4:55 PM Dictated By: HIPOLITO WRIGHT MD 54 Transcribed By: CARMEL on 07/05/191654 C OPY TO: HECTOR LOCKE SETTER [employer] Blood leukocytes automated count (number/volume)2019-07-05 16:20:00* Test Item Value Reference Range Interpretation Comments White Blood Count (test code = 6690-2) 6.31 4.8-10.8 [facility] erythrocytes automated count (number/volume)2019-07-05 16:20:00* Test Item Value Reference Range Interpretation Comments Red Blood Count (test code = 789-8) 5.44 4.3-5.7 [facility] hemoglobin measurement (moles/volume)2019-07-05 16:20:00* Test Item Value Reference Range Interpretation Comments Hemoglobin (test code = 99400-1) 16.1 14.0-18.0 [facility]landsAutomated blood hematocrit (volume fraction)2019-07-05 16:20:00* Test Item Value Reference Range Interpretation Comments Hematocrit (test code = 4544-3) 47.9 38.2-49.6 [facility]landsAutomated erythrocyte mean corpuscular pntapv3216-67-31 16:20:00* Test Item Value Reference Range Interpretation Comments Mean Corpuscular Volume (test code = 787-2) 88.1 81-99 [facility]landsAutom[facility] erythrocyte mean corpuscular hemoglobin (mass per erythrocyte)2019-07-05 16:20:00* Test Item Value Reference Range Interpretation Comments Mean Corpuscular Hemoglobin (test code = 785-6) 29.6 28-32 [facility]landsAutom[facility] erythrocyte mean corpuscular hemoglobin concentration measurement (mass/volume)2019-07-05 16:20:00* Test Item Value Reference Range Interpretation Comments Mean Corpuscular Hemoglobin Concent (test code = 786-4) 33.6 31-35 [facility]landsRDW MvkDd-Twg2613-59-05 16:20:00* Test Item Value Reference Range Interpretation Comments Red Cell Distribution Width (test code = 20578-4) 13.8 11.7 -14.4 [facility]landsAutom[facility] blood platelet count (count/volume)2019-07-05 16:20:00* Test Item Value Reference Range Interpretation Comments Platelet Count (test code = 777-3) 222 140-360 [facility]landsAutom[facility] blood segmented neutrophil count as percentage of total lupahllqul5764-49-27 16:20:00* Test Item Value Reference Range Interpretation Comments Neutrophils (%) (Auto) (test code = 26188-8) 64.0 38.7-80.0 [facility]landsAutom[facility] blood lymphocyte count as percentage ot total nubcecomne0961-23-82 16:20:00* Test Item Value Reference Range Interpretation Comments Lymphocytes (%) (Auto) (test code = 736-9) 26.5 18.0-39.1 [facility]landsAutom[facility] blood monocyte count as percentage of total nxhfwavfwf4307-54-70 16:20:00* Test Item Value Reference Range Interpretation Comments Monocytes (%) (Auto) (test code = 5905-5) 7.4 4.4-11.3 [facility]landsAutom[facility] blood eosinophil count as percentage of total stjvzcyqzy0665-53-94 16:20:00* Test Item Value Reference Range Interpretation Comments Eosinophils (%) (Auto) (test code = 713-8) 0.5 0.0-6.0 [facility]landsAutom[facility] blood basophil count as percentage of total znneotnywj1553-62-25 16:20:00* Test Item Value Reference Range Interpretation Comments Basophils (%) (Auto) (test code = 706-2) 1.3 0.0-1.0 [facility]landsFluoroscopic procedure less than one hour inhkzztr2436-65-97 16:20:00* Test Item Value Reference Range Interpretation Comments IM GRANULOCYTES % (test code = IM GRANULOCYTES %) 0.3 0.0- 1.0 [facility]landsAutom[facility] blood neutrophil count 2019-07-05 16:20:00* Test Item Value Reference Range Interpretation Comments Neutrophils # (Auto) (test code = 751-8) 4.0 2.1-6.9 [facility] lymphocytes count (number/volume) 2019-07-05 16:20:00* Test Item Value Reference Range Interpretation Comments Lymphocytes # (Auto) (test code = 71328-1) 1.7 1.0-3.2 [facility]Blood monocytes automated count (number/volume)2019-07-05 16:20:00* Test Item Value Reference Range Interpretation Comments Monocytes # (Auto) (test code = 742-7) 0.5 0.2-0.8 [facility]landsAutomated blood eosinophil count 2019-07-05 16:20:00* Test Item Value Reference Range Interpretation Comments Eosinophils # (Auto) (test code = 711-2) 0.0 0.0-0.4 [facility]landsAutomated blood basophil count (count/volume)2019-07-05 16:20:00* Test Item Value Reference Range Interpretation Comments Basophils # (Auto) (test code = 704-7) 0.1 0.0-0.1 [facility]landsFluoroscopic procedure less than one hour qykwescl9322-66-84 16:20:00* Test Item Value Reference Range Interpretation Comments Absolute Immature Granulocyte (auto (bette t code = Absolute Immature Granulocyte (auto) 0.02 0-0.1 [facility]landsProthrombin time (PT) in platelet poor plasma by coagulation ebuey3371-45-72 16:20:00* Test Item Value Reference Range Interpretation Comments Prothrombin Time (test code = 5902-2) 14.8 11.9-14.5 [facility]landsINR in Platelet poor plasma by Coagulation xpuby3858-51-77 16:20:00* Test Item Value Reference Range Interpretation Comments Prothromb Time International Ratio (test code = 6301-6) 1.09 Oral Anticoagulant Therapy INR Values:1. Low Intensity Therapy 1.5 - 2.02 . Moderate Intensity Therapy 2.0 - 3.03. High Intensity Therapy(1) 2.5 - 3. 54. High Intensity Therapy(2) 3.0 - 4.05. Panic Value INR > 5.0 [facility]landsActivated partial thromboplastin time (aPTT) in platelet poor plasma by coagulation wimko7504-07-11 16:20:00* Test Item Value Reference Range Interpretation Comments Activated Partial Thromboplast Time (test code = 52281-6) 36.4 23.8-35.5 [facility] or plasma sodium measurement (moles/volume)2019-07-05 16:20:00* Test Item Value Reference Range Interpretation Comments Sodium Level (test code = 2951-2) 138 136-145 [facility] Hospitalerum or plasma potassium measurement (moles/volume)2019-07-05 16:20:00* Test Item Value Reference Range Interpretation Comments Potassium Level (test code = 2823-3) 4.3 3.5-5.1 [facility] Hospitaler[facility] or plasma chloride measurement (moles/volume)2019-07-05 16:20:00* Test Item Value Reference Range Interpretation Comments Chloride Level (test code = 2075-0) 105 98-107 [facility] Hospitaler[facility] or plasma carbon dioxide, total measurement (moles/volume)2019-07-05 16:20:00* Test Item Value Reference Range Interpretation Comments Carbon Dioxide Level (test code = 2028-9) 24 22-29 [facility] Hospitalerum or plasma anion [id number] 16:20:00* Test Item Value Reference Range Interpretation Comments Anion Gap (test code = 61835-8) 13.3 8-16 [facility] Hospitalerum or plasma urea nitrogen measurement (mass/volume)2019-07-05 16:20:00* Test Item Value Reference Range Interpretation Comments Blood Urea Nitrogen (test code = 3094-0) 12 7-26 [facility] Hospitaler[facility] or plasma creatinine measurement (mass/volume)2019-07-05 16:20:00* Test Item Value Reference Range Interpretation Comments Creatinine (test code = 2160-0) 0.84 0.72-1.25 [facility] Hospitaler[facility] or plasma urea nitrogen/creatinine mass dmvri0965-14-62 16:20:00* Test Item Value Reference Range Interpretation Comments BUN/Creatinine Ratio (test code = 3097-3) 14 6-25 [facility]landsEstimated glomerular filtration rate (GFR) fddtwellzqxjn9301-42-03 16:20:00* Test Item Value Reference Range Interpretation Comments Estimat Glomerular Filtration Rate (test code = 231444111) > 60 >60 Ranges were taken from the National Kidney Disease Education Program and the [facility] literature.Reference ranges:60 or greater: Jhmvgg35-58 ( for 3 consecutive months): Chronic kidney disease 15 or less: Kidney failureTexas [facility]'s Hospital The WoodlandsGlucose qxtrovwmzdc2836-46-37 16:20:00* Test Item Value Reference Range Interpretation Comments Glucose Level (test code = IXK8174) 124 74-118 [facility] Hospitalerum or plasma calcium measurement (mass/volume)2019-07-05 16:20:00* Test Item Value Reference Range Interpretation Comments Calcium Level (test code = 47691-8) 10.6 8.4-10.2 [facility] Hospitalerum or plasma total bilirubin measurement (mass/volume)2019-07-05 16:20:00* Test Item Value Reference Range Interpretation Comments Total Bilirubin (test code = 1975-2) 1.7 0.2-1.2 [facility]landsFluoroscopic procedure less than one hour ntclhcbi1642-94-71 16:20:00* Test Item Value Reference Range Interpretation Comments Aspartate Amino Transf (AST/SGOT) (test code = Aspartate Amino Transf (AST/SGOT)) 14 5-34 [facility] Hospitalerum or plasma alanine aminotransferase measurement (enzymatic activity/volume)2019-07-05 16:20:00* Test Item Value Reference Range Interpretation Comments Alanine Aminotransferase (ALT/SGPT) (test code = 1742-6) 13 0-55 [facility] Hospitalerum or plasma protein measurement (mass/volume)2019-07-05 16:20:00* Test Item Value Reference Range Interpretation Comments Total Protein (test code = 2885-2) 6.8 6.5-8.1 [facility] Hospitalerum or plasma albumin measurement (mass/volume)2019-07-05 16:20:00* Test Item Value Reference Range Interpretation Comments Albumin (test code = 1751-7) 3.8 3.5-5.0 [facility]landsPlasma globulin measurement (mass/volume) 2019-07-05 16:20:00* Test Item Value Reference Range Interpretation Comments Globulin (test code = 03685-4) 3.0 2.3-3.5 [facility] Hospitaler[facility] or plasma albumin/globulin mass ecpyn6192-44-91 16:20:00* Test Item Value Reference Range Interpretation Comments Albumin/Globulin Ratio (test code = 1759-0) 1.3 0.8-2.0 [facility] Hospitaler[facility] or plasma alkaline phosphatase measurement (enzymatic activity/volume)2019-07-05 16:20:00* Test Item Value Reference Range Interpretation Comments Alkaline Phosphatase (test code = 6768-6) 77 40-150 [facility] Hospitalerum or plasma creatine kinase measurement (enzymatic activity/volume)2019-07-05 16:20:00* Test Item Value Reference Range Interpretation Comments Creatine Kinase (test code = 2157-6) 31 30-200 [facility] Hospitalerum or plasma creatine kinase MB measurement (mass/volume)2019-07-05 16:20:00* Test Item Value Reference Range Interpretation Comments Creatine Kinase MB (test code = 60738-9) 2.20 0-5.0 [facility]landsTroponin I measurement by highly sensitive enzyme ypcspelaqgu1018-61-57 16:20:00* Test Item Value Reference Range Interpretation Comments Troponin I (test code = 32721-3) 0.002 0-0.300 [facility]landsProthrombin time (PT) in platelet poor plasma by coagulation gskxf9639-36-87 16:20:00* Test Item Value Reference Range Interpretation Comments Prothrombin Time (test code = 5902-2) 14.8 11.9-14.5 [facility]landsINR in Platelet poor plasma by Coagulation qxcfq4530-05-39 16:20:00* Test Item Value Reference Range Interpretation Comments Prothromb Time International Ratio (test code = 6301-6) 1.09 Oral Anticoagulant Therapy INR Values:1. Low Intensity Therapy 1.5 - 2.02 . Moderate Intensity Therapy 2.0 - 3.03. High Intensity Therapy(1) 2.5 - 3. 54. High Intensity Therapy(2) 3.0 - 4.05. Panic Value INR > 5.0 [facility]landsActivated partial thromboplastin time (aPTT) in platelet poor plasma by coagulation liltj1746-18-46 16:20:00* Test Item Value Reference Range Interpretation Comments Activated Partial Thromboplast Time (test code = 05149-9) 36.4 23.8-35.5 [facility]
[2019-08-01] MEDS ORDERED: ROCURONIUM BROMIDE 10 MG/ML 5ML VIAL IV ONE (17:22)
[2019-08-01] MEDS ORDERED: SEVOFLURANE INHAL SOLN 250 ML PEN BTL ONE (17:22)
[2019-08-01] MEDS ORDERED: LIDOCAINE HCL 2% LOCAL INJ 5 ML SDV VIAL INJ ONE (17:22)
[2019-08-01] MEDS ORDERED: EPHEDRINE SULFATE INJ 50 MG/ML VIAL ONE (17:22)
[2019-08-01] MEDS ORDERED: ONDANSETRON HCL INJ 2MG/ML 2ML 2 MG/ML VIAL ONE (17:22)
[2019-08-01] MEDS ORDERED: DEXAMETHASONE SOD PHOS INJ 4 MG/ML VIAL ONE (17:22)
[2019-08-01] MEDS ORDERED: ETOMIDATE 2 MG/ML 10 ML INJ IV ONE (17:22)
[2019-08-01] MEDS ORDERED: ACETAMINOPHEN 1000 MG/100 ML IV ONE (17:22)
[2019-08-01] MEDS ORDERED: MORPHINE SULFATE 2 MG/ML SYR 1ML IV PRN ×3 (17:30→19:45)
[2019-08-01] MEDS ORDERED: LABETALOL HCL 5 MG/ML 20ML VIAL IV PRN ×2 (17:30→19:45)
--- NOTE | 2019-08-01 18:35 | NUR ---
Pt received to [facility] bed 197. Chest tube to left chest with -20 suction without complications. Daughter is with patient. 99.2 oral, 71, 17 RR 97% on 2L NC, 128/80. Pt denies complaints when asked, daughter at bedside.
[2019-08-01] MEDS ORDERED: HYDROCODONE/APAP 5MG-325MG TAB PO PRN (19:45)
[2019-08-01 20:00] VITALS: BP 105/66
[2019-08-01] MEDS: ENOXAPARIN SOD INJ 40 MG/0.4 ML SYR SC SCH (20:00)
[2019-08-01] MEDS ORDERED: CEFAZOLIN SOD 1 GM/NS 50ML 50 ML IV ONE ×2 (20:00)
[2019-08-01] MEDS ORDERED: SODIUM CHLORIDE 0.9% 250ML 250 ML ONE (20:12)
[2019-08-01 20:37] VITALS: BP 105/66
[2019-08-01] MEDS: DONEPEZIL HCL 5 MG TAB PO SCH (21:00)
[2019-08-01] MEDS: ATORVASTATIN 40 MG TAB PO SCH (21:00)
[2019-08-01] MEDS: MEMANTINE 10 MG TAB PO SCH (21:00)
[2019-08-01] MEDS ORDERED: NON-FORMULARY MEDICATION (Atorvastatin Calcium 40 MG) PO SCH (21:00)
[2019-08-01] MEDS: LISINOPRIL 2.5 MG TAB PO SCH (21:00)
[2019-08-01] MEDS: QUETIAPINE FUMARATE 25 MG TAB PO SCH (21:00)
--- NOTE | 2019-08-01 21:20 | Consultation ---
DATE OF CONSULTATION: 08/01/2019 Pulmonary Critical Care Consultation CHIEF COMPLAINT: Persistent large left pleural effusion. HISTORY OF PRESENT ILLNESS: The patient is an 84-year-old man. He has a history of a large left pleural effusion. He required a brief admission with thoracentesis. The cytology was negative. The fluid was consistent with an exudate. He was subsequently referred to Thoracic Surgery. Today, he underwent a VATS procedure with biopsy of pleural nodules. He had a PleurX catheter placed as well. PAST SURGICAL HISTORY: VATS and PleurX catheter as noted above. PAST MEDICAL HISTORY: Hypercholesterolemia, hypertension, and dementia. SOCIAL HISTORY: The patient has a history of working around asbestos in the past. He is not an active smoker or drinker. ALLERGIES: HE IS ALLERGIC HYDROMORPHONE. FAMILY HISTORY: Noncontributory. REVIEW OF SYSTEMS: The patient is afebrile. The patient has no headache or neck pain. He does not complain of chest pain. He does have some dyspnea. He has no abdominal pain. There is no nausea or vomiting. He has no leg edema. PHYSICAL EXAMINATION: VITAL SIGNS: The patient is afebrile. The blood pressure is 129/60 and saturation is 99% on 2 L. HEENT: Shows no facial swelling or erythema. CARDIAC: Reveals regular rate and rhythm with normal S1 and S2. LUNGS: Auscultation of lungs reveals decreased breath sounds at the left base. There is no wheezing. There is a PleurX catheter in place. It is attached to a Pleur-evac. ABDOMEN: Soft and nontender. There is no rebound or guarding. EXTREMITIES: Shows no leg edema or calf tenderness. There is no cyanosis or clubbing. SKIN: Shows no rashes. IMPRESSION: 1. 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 2. Organic brain syndrome. 3. Hypertension. 4. Hyperlipidemia. PLAN: 1. Continue drainage of the pleural space with a PleurX catheter. 2. Await pathology results. 3. Monitor blood pressure. Meir Weldon MD [facility]/GABIL /[id number]
[2019-08-01 21:42] VITALS: BP 105/66
[2019-08-02] VITALS (7 sets, daily range): BP systolic 86–121; BP diastolic 48–60
[2019-08-02] MEDS: HYDROCODONE/APAP 5MG-325MG TAB PO PRN ×2 (00:10→18:52)
--- NOTE | 2019-08-02 07:00 | NUR ---
BEDSIDE SHIFT REPORT RECEIVED PT IN STABLE CONDITION, DENIES PAIN AT THIS TIME, L CHEST TUBE TO WALL SUCTION, DSG INTACT, UPDATED ON POC VOICED UNDERSTANDING, CALL LIGHT IN REACH WILL CONTINUE TO MONITOR
--- NOTE | 2019-08-02 08:10 | Diagnostic Imaging Report ---
EXAMINATION: CHEST SINGLE (PORTABLE) COMPARISON: Chest x-ray 08/01/2019 INDICATION: ^Follow up VATS c pleural biopsy ^[id number] ^0635 ^Y DISCUSSION: Frontal view of the chest obtained at 0638 hours. HEART AND MEDIASTINUM: Stable mild cardiomegaly LINES: Left basilar chest tube is similar in position. LUNGS/PLEURA: The right lung is clear. Patchy airspace opacities in the mid and inferior left lung are similar. Left pneumothorax is not visualized on this image. No evidence of right pneumothorax. No large effusions. SOFT TISSUES: Stable diffuse subcutaneous emphysema of the left hemithorax and left neck. IMPRESSION: 1. Left pneumothorax is no longer visualized. Airspace opacities in the inferior left lung are similar. 2. Stable left chest tube position and diffuse subcutaneous emphysema in the left chest and neck. Signed by: Dr. Natalia Williamson MD on 08/02/2019 8:07 AM
[2019-08-02] MEDS ORDERED: RISPERIDONE 0.5 MG TAB PO PRN (13:45)
--- NOTE | 2019-08-02 14:30 | NUR ---
chest tube disconnected from wall as per ordered, telemetry dc'd as per ordered, will continue to monitor
--- NOTE | 2019-08-02 15:35 | Progress Note ---
DATE: 08/02/2019 SUBJECTIVE: The patient had some agitation last night. He does not complain of dyspnea or pain. He has some subcutaneous emphysema. PHYSICAL EXAMINATION: VITAL SIGNS: The blood pressure is 99/50 and the heart rate is 58. HEENT: Shows no facial swelling or erythema. There is some subcutaneous emphysema in the neck and the left chest. There is a pleural catheter connected to a Pleur-evac on the left side. It is not connected to suction. ABDOMEN: Soft and nontender. There is no rebound or guarding. EXTREMITIES: Shows no leg edema or calf tenderness. There is no cyanosis or clubbing. SKIN: Shows no rashes. IMPRESSION: 1. Malignant left pleural effusion. 2. Subcutaneous emphysema. 3. Organic brain syndrome. 4. Hypertension. PLAN: 1. Continue to monitor. Repeat chest x-ray tomorrow. 2. Discontinue telemetry. 3. Physical therapy. 4. Low-dose risperidone for agitation. 5. Await pathology results. Meir Weldon MD [facility]/GABIL /[id number]
--- NOTE | 2019-08-02 15:40 | Operative Report ---
DATE OF PROCEDURE: 08/01/2019 SURGEON: Raj Conway MD INFRASTRUCTURE SOFTWARE ENGINEER: Devendra. PREOPERATIVE DIAGNOSES: 1. Recurrent large left pleural effusion. 2. Senile dementia. 3. History of asbestos exposure. POSTOPERATIVE DIAGNOSES: 1. Recurrent large left pleural effusion. 2. Senile dementia. 3. History of asbestos exposure. TITLE OF OPERATIONS: 1. Left exploratory mini-thoracotomy. 2. VATS, video-assisted thoracoscopy. 3. Excisional left pleural biopsy. 4. Left thoracentesis. 5. Implantation of left PleurX catheter. DESCRIPTION OF OPERATION: After the satisfactory accomplishment of general anesthesia with a double-lumen endotracheal tube, the patient was placed in the right lateral position and the left chest was prepped and draped in sterile fashion. A 1-inch incision was made along the 7th intercostal space and carried down through the subcutaneous and fascia to enter the left chest in the 7th intercostal space. The left lung was deflated and a flexible thoracoscope was introduced into the left pleural cavity. Extensive nodular changes in the left lung were easily visualized. The left pleura was thickened and opaque. There were some nodular changes along the pleural surface. Body Fitter sections of the pleura wall and of the nodular changes were removed, and sent to the pathology laboratory for permanent pathology inspection. Approximately 3.5 L of brownish fluid was suctioned from within the left chest cavity. Specimens of this fluid were also sent to the pathology laboratory for further definition. The thoracoscope was withdrawn and a small 1.5-inch incision was made to the medial side of the prior incision in the chest wall. These two incisions were then connected with a submuscular tunnel and the PleurX catheter was introduced through a percutaneous needle technique on the medial side of the 1.5-inch incision. A catheter tip was advanced into the 1.5-inch incision and then it was further advanced through the submuscular tunnel to enter the left chest through the previous small thoracotomy incision. Once the catheter was in place. The cuff was secured just beneath the skin and anchored to the skin with a 0 silk suture. Both incisions were then thoroughly irrigated with antibiotic solution and closed in layers with interrupted 2-0 Vicryl for the deep tissues and Monocryl subcuticular stitches for the skin. The patient tolerated the procedure well. The left lung was inflated and the patient was returned to the recovery room in good condition. MD JASWANT Watts/SUDARSHAN /[id number]
--- NOTE | 2019-08-02 15:45 | NUR ---
pt ambulated in halls with pt,
[2019-08-02 16:40] LABS: BASOPHILS % 0.3 % (0.0-1.0); EOSINOPHILS # (AUTO) 0.2 (0.0-0.4); EOSINOPHILS % 1.5 % (0.0-6.0); HEMATOCRIT 47.6 % (38.2-49.6); HEMOGLOBIN 15.6 g/dL (14.0-18.0); LYMPHOCYTES # (AUTO) 1.7 (1.0-3.2); LYMPHOCYTES % 17.2 % (18.0-39.1); MEAN CORPUSCULAR HEMOGLOBIN 28.5 pg (28-32); MEAN CORPUSCULAR HGB CONC 32.8 g/dL (31-35); MEAN CORPUSCULAR VOLUME 86.9 fL (81-99); MONOCYTES # (AUTO) 0.6 (0.2-0.8); MONOCYTES % 5.9 % (4.4-11.3); NEUTROPHILS # (AUTO) 7.3 (2.1-6.9); NEUTROPHILS % 74.8 % (38.7-80.0); PLATELET COUNT 263 x10e3/uL (140-360); RED BLOOD COUNT 5.48 x10e6/uL (4.3-5.7); RED CELL DISTRIBUTION WIDTH 13.4 % (11.7-14.4)
[2019-08-02 16:58] LABS: ALANINE AMINOTRANSFERASE 11 IU/L (0-55); ALBUMIN 2.8 g/dL (3.5-5.0); ALBUMIN/GLOBULIN RATIO 0.9 (0.8-2.0); ALKALINE PHOSPHATASE 73 IU/L (40-150); ANION GAP 9.2 mmol/L (8-16); BLOOD UREA NITROGEN 15 mg/dL (7-26); BUN/CREATININE RATIO 19 (6-25); CARBON DIOXIDE 25 mmol/L (22-29); CHLORIDE 104 mmol/L (98-107); EST GLOMERULAR FILTRATION RATE > 60 ML/MIN (60-); GLUCOSE 111 mg/dL (74-118); POTASSIUM 4.2 mmol/L (3.5-5.1); SODIUM 134 mmol/L (136-145)
[2019-08-02] MEDS ORDERED: ENOXAPARIN SOD INJ 40 MG/0.4 ML SYR SC SCH (17:00)
--- NOTE | 2019-08-02 18:52 | NUR ---
nurse called to rm edema noted to pts left lower side, pt co pain to chest tube insertion site, medicated with prn meds, will notify md of edema,
--- NOTE | 2019-08-02 19:15 | NUR ---
Report received. Assumed care. Assessment done. See interventions. Chest tube to left chest. Firm swollen area below CT site and soft swollen are to upper back. Daughter at bedside.
--- NOTE | 2019-08-02 19:20 | NUR ---
spoke with dr ugarte re: edema noted, to left lower side, no new orders at this time
--- NOTE | 2019-08-02 19:30 | NUR ---
Report received. Assumed care. Assessment done. See interventions. Addendum: 08/02/19 at 2054 by Afua Haas RN Duplicate entry
--- NOTE | 2019-08-02 19:30 | NUR ---
spoke with dr. ugarte chest tube reconnected to wall
[2019-08-02] MEDS: LISINOPRIL 2.5 MG TAB PO SCH (21:00)
--- NOTE | 2019-08-02 21:00 | NUR ---
Warm prune juice given per request for c/o constipation.
[2019-08-02] MEDS: ENOXAPARIN SOD INJ 40 MG/0.4 ML SYR SC SCH (21:11)
[2019-08-02] MEDS: QUETIAPINE FUMARATE 25 MG TAB PO SCH (21:11)
[2019-08-02] MEDS: ATORVASTATIN 40 MG TAB PO SCH (21:11)
[2019-08-02] MEDS: DONEPEZIL HCL 5 MG TAB PO SCH (21:11)
[2019-08-02] MEDS: MEMANTINE 10 MG TAB PO SCH (21:11)
--- NOTE | 2019-08-02 22:49 | NUR ---
Risperdahl given per request for anxiety.
[2019-08-03] VITALS: BP 95/65
--- NOTE | 2019-08-03 02:00 | NUR ---
Attempted to use BSC for BM without success.
[2019-08-03 04:00] VITALS: BP 99/55
--- NOTE | 2019-08-03 06:55 | Diagnostic Imaging Report ---
EXAMINATION: CHEST SINGLE (PORTABLE) COMPARISON: Chest x-ray 08/02/2019 INDICATION: ^subcutaneous emphysema ^[id number] ^0600 DISCUSSION: Frontal view of the chest obtained at 0616 hours. HEART AND MEDIASTINUM: Stable LINES: Left chest tube is stable in position. LUNGS/PLEURA: Patchy infiltrates in the left lung are similar. Minimal discoid atelectasis in the right lung. Trace left pleural effusion. Stable left apical pleural thickening. No pneumothorax BONES AND SOFT TISSUES: Extensive subcutaneous emphysema of the left chest and lower left neck is similar. Small amount of subcutaneous emphysema in the lower right neck. IMPRESSION: No change in airspace opacities in the left lung. Stable left chest tube. No evidence of pneumothorax. No significant change in subcutaneous emphysema in the left chest and bilateral subcutaneous tissues emphysema of the neck. Signed by: Dr. Natalia Williamson MD on 08/03/2019 6:52 AM
[2019-08-03 07:50] VITALS: BP 103/59
[2019-08-03 08:00] VITALS: BP 103/59
[2019-08-03 11:43] VITALS: BP 109/61
--- NOTE | 2019-08-03 12:58 | NUR ---
Received order for home health. Spoke to pt and at bedside. States they never used home health previously. States can use any company in network with insurance. Choice letter signed for [facility]. Signed copy placed in front of chart. Copy to pt's with HH contact information. CM asked her to call them if she does not hear from them within 24 hrs of dc. Referral faxed to [facility] at [phone]. Spoke to Mikki and informed of referral. She states they will order pleuridex catheter kits for pt. Pt currently has a few kits at bedside.
--- NOTE | 2019-08-03 13:25 | Progress Note ---
DATE: 08/03/2019 SUBJECTIVE: The patient is sitting up in the chair and eager to go home. He still has some subcutaneous emphysema, but it has decreased since yesterday. PHYSICAL EXAMINATION: VITAL SIGNS: The patient is afebrile. The blood pressure is 109/61, and saturation is 94% on 2 L. The pulse is 73. HEENT: Shows no facial swelling or erythema. CARDIAC: Reveals a regular rate and rhythm with normal S1 and S2. There is a PleurX catheter in the intercostal space. ABDOMEN: Soft and nontender. There is no rebound or guarding. EXTREMITIES: Shows no leg edema or calf tenderness. There is no cyanosis or clubbing. SKIN: Shows no rashes. IMPRESSION: 1. Malignant left pleural effusion. 2. Subcutaneous emphysema. 3. Hypertension. PLAN: 1. Discharge home today. 2. Follow up in 7 to 10 days for pathology results. 3. Home health nurse to instruct the patient on use of PleurX catheter. 4. Physical therapy at home. Meir Weldon MD [facility] /[phone]
--- NOTE | 2019-08-03 15:19 | NUR ---
Spoke to Mikki with [employer]. States they have submitted for auth. Should be able to schedule pt to be seen Thursday. If needed, they will have nurse come see pt tomorrow, if he discharges today. Updated MIKE Coulter regarding home health status. Nursing to provide education to family regarding pleurx catheter care prior to discharge.
[2019-08-03 15:37] VITALS: BP 100/61
== END 2019-08-03 17:35 | disposition home or self-care (01) | DRG 164 ==
LOC: OR 05:46 → PACU V 10:15 → IMCU 18:35
PROVIDERS: ADMIT Thoracic Surgery (Cardiothoracic Vascular Surgery); ATTEND Thoracic Surgery (Cardiothoracic Vascular Surgery)
PROC: 0B9 Respiratory System, Drainage (ICD-10-PCS; 2019-08-01)
PROC: 0B9P40Z Drainage of Left Pleura with Drainage Device, Percutaneous Endoscopic Approach (ICD-10-PCS; 2019-08-01)
PROC: 0W9B3ZX Drainage of Left Pleural Cavity, Percutaneous Approach, Diagnostic (ICD-10-PCS; 2019-08-01)
PROC: 0BBP4ZX Excision of Left Pleura, Percutaneous Endoscopic Approach, Diagnostic (ICD-10-PCS; principal; 2019-08-01 07:30)
DX: C45.0 Mesothelioma of pleura (principal); J91.0 Malignant pleural effusion; G30.1 Alzheimer's disease with late onset; F02.80 Dementia in other diseases classified elsewhere, unspecified severity, without behavioral disturbance, psychotic disturbance, mood disturbance, and anxiety; F09 Unspecified mental disorder due to known physiological condition; I10 Essential (primary) hypertension; J43.9 Emphysema, unspecified; E78.00 Pure hypercholesterolemia, unspecified; Z88.5 Allergy status to narcotic agent; Z77.090 Contact with and (suspected) exposure to asbestos
CPT/HCPCS: 36415; 71045; 71046; 80048; 80053; 85025; 85610; 85730; 86850; 86900; 86920; 87070; 87102; 87116; 87205; 87206; 87635; 88112; 88305; 88342; J0690; J1100; J1650; J2001; J2405; J3010; J7050

== ENCOUNTER → 2019-08-08 | Outpatient (CLI) | payer OTHER ==
--- NOTE | 2019-08-08 14:11 | Diagnostic Imaging Report ---
EXAM: CHEST 2 VIEWS DATE: 08/08/2019 1:49 PM INDICATION: Pleural effusion COMPARISON: 08/03/2019 FINDINGS: Left pleural left pleural catheter identified in stable catheter identified in stable position. There has been interval reduction of left chest wall subcutaneous emphysema. The trachea is midline. There is a small sized residual left pleural effusion present. Patchy opacities again identified within the left lower lung zone which are unchanged from the prior examination and may reflect atelectasis/scarring. There is no evidence for new large focal consolidation or pneumothorax. The cardiomediastinal silhouette is stable in appearance. No acute osseous abnormality is identified. IMPRESSION: No significant interval change from 08/03/2019. Left pleural catheter identified in stable position. Small residual left pleural effusion noted with grossly stable appearing left lower lung zone opacities. Signed by: Dr. Hipolito Wright MD on 08/08/2019 2:07 PM
== END ==
LOC: RAD 13:23
PROVIDERS: ATTEND Family Medicine
DX: J90 Pleural effusion, not elsewhere classified (principal)
CPT/HCPCS: 71046

== ENCOUNTER 2019-09-10 09:00 | Emergency (ER) | payer OTHER ==
[~2019-09-10] VITALS: Ht 170.2 cm; Wt 83.9 kg
--- NOTE | 2019-09-10 09:38 | NUR ---
Family at bedside.
--- NOTE | 2019-09-10 10:15 | Diagnostic Imaging Report ---
EXAMINATION: CHEST SINGLE (PORTABLE) INDICATION: NEEDS THORACENTESIS COMPARISON: Multiple prior chest x-ray examinations most recent dated 08/08/2019 FINDINGS: AP view TUBES and LINES: Left pleural left pleural catheter is in stable position. There has been interval resolution of left chest wall subcutaneous emphysema. LUNGS/PLEURA: There is a new left lung whiteout compatible with large effusion with associated mediastinal shift to the right. The right lung is clear. HEART AND MEDIASTINUM: The cardiomediastinal silhouette is unremarkable. BONES AND SOFT TISSUES: No acute osseous lesion. Soft tissues are unremarkable. UPPER ABDOMEN: No free air under the diaphragm. IMPRESSION: New left lung whiteout compatible with large effusion with associated mediastinal shift to the right. Signed by: Salvador Cuevas MD on 09/10/2019 10:12 AM
--- NOTE | 2019-09-10 11:58 | NUR ---
Patients pleurX catheter drained, 2000 mL of fluid drained. ER MD aware patient ok to discharge.
[2019-09-10 12:11] VITALS: BP 152/85
--- NOTE | 2019-09-10 12:13 | Emergency Department Note ---
History of Present Illnes History of Present Illness Chief Complaint: Respiratory History of Present Illness This is a 84 year old male pt was to have a PET scan at [facility] today, but was sob because the home health nurse "ran out of bottles" to do pt's home thoresentis. pt has mesothelioma cancer with plueral effusion and has a ray drain in place already. Historian: Patient, Family Member Arrival Mode: Car Slip Filler Required: No Onset (how long ago): day(s) (3) Radiation: Reports non-radiation Severity: moderate Onset quality: gradual Timing of current episode: constant Progression: worsening Chronicity: chronic (GETS PRN THORACENTESIS PRN WHEN HE GETS SOB) Context: Denies recent illness Relieving factors: none Exacerbating factors: none Associated symptoms: Reports denies other symptoms Treatments prior to arrival: none Past Medical/Family History Physician Review I have reviewed the patient's past medical and family history. Any updates have been documented here. Past Medical History Recent Fever: No Clinical Suspicion of Infectio: No New/Unexplained Change in Ment: No Past Medical History: Hypertension, Hyperlipedemia Other Medical History: ALZHEIMERS Past Surgical History: Knee Replacement Other Surgery: LEFT TOTAL KNEE MULTIPLE THORACENTESES, THEN RAY CATHETER PLACED Social History Smoking Cessation: Never Smoker Counseling Performed: No Alcohol Use: None Any Illegal Drug Use: No TB Exposure/Symptoms: No Physically hurt or threatened: No Family History Family history of heart diseas: Yes Other Last Tetanus: UNKNOWN Any Pre-Existing Lines (PICC,: No Review of Systems Review of Systems Constitutional: Reports no symptoms EENTM: Reports no symptoms Cardiovascular: Reports no symptoms Respiratory: Reports as per HPI Gastrointestinal: Reports no symptoms Genitourinary: Reports no symptoms Musculoskeletal: Reports no symptoms Integumentary: Reports no symptoms Neurological: Reports no symptoms Psychological: Reports no symptoms Endocrine: Reports no symptoms Hematological/Lymphatic: Reports no symptoms Physical Exam Related Data Allergies: Coded Allergies: hydromorphone (Verified Allergy, Intermediate, Combative, Disoriented, 10/25/13) Triage Vital Signs Vital Signs Date Time Temp Pulse Resp B/P (MAP) Pulse Ox O2 Delivery O2 Flow Rate FiO2 09/10/19 09:26 98.8 94 16 146/105 96 Room Air Vital signs reviewed: Yes Physical Exam CONSTITUTIONAL Constitutional: Present well-developed, Present well-nourished HENT HENT: Present normocephalic, Present atraumatic, Present oropharynx clear/moist, Present nose normal HENT L/R: Present left ext ear normal, Present right ext ear normal EYES Eyes: Reports PERRL, Reports conjunctivae normal NECK Neck: Present ROM normal PULMONARY Pulmonary: Present other (DECR BS's LEFT SIDE ALL THE WAY UP) CARDIOVASCULAR Cardiovascular: Present regular rhythm, Present heart sounds normal, Present capillary refill normal, Present normal rate GASTROINTESTINAL Abdominal: Present soft, Present nontender, Present bowel sounds normal GENITOURINARY Genitourinary: Present exam deferred SKIN Skin: Present warm, Present dry MUSCULOSKELETAL Musculoskeletal: Present ROM normal NEUROLOGICAL Neurological: Present alert, Present oriented x 3, Present no gross motor or sensory deficits PSYCHOLOGICAL Psychological: Present mood/affect normal, Present judgement normal Results Imaging Imaging results reviewed: Yes Impressions EXAMINATION: CHEST SINGLE (PORTABLE) INDICATION: NEEDS THORACENTESIS COMPARISON: Multiple prior chest x-ray examinations most recent dated 08/08/2019 FINDINGS: AP view TUBES and LINES: Left pleural left pleural catheter is in stable position. There has been interval resolution of left chest wall subcutaneous emphysema. LUNGS/PLEURA: There is a new left lung whiteout compatible with large effusion with associated mediastinal shift to the right. The right lung is clear. HEART AND MEDIASTINUM: The cardiomediastinal silhouette is unremarkable. BONES AND SOFT TISSUES: No acute osseous lesion. Soft tissues are unremarkable. UPPER ABDOMEN: No free air under the diaphragm. IMPRESSION: New left lung whiteout compatible with large effusion with associated mediastinal shift to the right. Signed by: Salvador Cuevas MD on 09/10/2019 10:12 AM Procedures Procedures Procedure: PLEURAL FLUID DRAINAGE - PLEURX CATHETER ACCESSED WITH PLEURX KIT AND 2 L NON- BLOODY FERNÁNDEZ FLUID REMOVED WITHOUT COMPLICATION, NEW CAP PLACED AND LINE CLAMPED, DRESSING PLACED Assessment & Plan Medical Decision Making MDM DRAIN FLUID FROM LEFT LUNG WITH PLEURX KIT Reassessment Reassessment DC HOME, F/U WITH HIS DOCTORS THURSDAY, RTED PRN Assessment & Plan Final Impression: (1) Pleural effusion Depart Disposition: HOME, SELF-CARE Last Vital Signs Date Time Temp Pulse Resp B/P (MAP) Pulse Ox O2 Delivery O2 Flow Rate FiO2 09/10/19 11:59 82 18 163/86 92 09/10/19 09:26 98.8 Room Air Home Meds Reported Medications Clopidogrel Bisulfate (CLOPIDOGREL) 75 Mg Tablet, 75 MG PO HS, #30 TAB 07/26/19 Lisinopril (LISINOPRIL) 2.5 Mg Tablet, 2.5 MG PO HS, #30 TAB 07/26/19 Quetiapine Fumarate (QUETIAPINE FUMARATE) 25 Mg Tablet, 25 MG PO HS 07/26/19 Memantine Hcl (NAMENDA) 10 Mg Tablet, 10 MG PO HS, #30 TAB 03/22/15 Donepezil Hcl (ARICEPT) 5 Mg Tablet, 5 MG PO HS, TAB 12/25/14 Atorvastatin Calcium (ATORVASTATIN CALCIUM) 40 Mg Tablet, 40 MG PO HS 11/29/13 AKIL DENIS MD Sep 10, 2019 12:13
== END 2019-09-10 12:19 | disposition home or self-care (01) ==
LOC: ER 09:23
DX: J90 Pleural effusion, not elsewhere classified (principal); R06.02 Shortness of breath; I10 Essential (primary) hypertension; E78.5 Hyperlipidemia, unspecified; G30.9 Alzheimer's disease, unspecified; F02.80 Dementia in other diseases classified elsewhere, unspecified severity, without behavioral disturbance, psychotic disturbance, mood disturbance, and anxiety
CPT/HCPCS: 71045; 99283